=== PATIENT | female | born 1975 | race Caucasian/White ===

== ENCOUNTER 2021-01-09 07:56 | Day surgery (SDC) | payer BC, OTHER ==
[~2021-01-09] VITALS: Ht 154.9 cm; Wt 119.3 kg
[~2021-01-09 07:56] MED LIST: ESCI5SOL3 PO; LIDOCAINE 1% MDV 20ML VIAL SQ PRN; LOSA50TA88 PO; LR 1,000 ML IV ONE; SETL1TAB PO; ceFAZolin SOD 1 GM in D5W MINI-BAG PLUS 50 ML IV ONE; ceFAZolin SOD 2 GM in IV 1 EA IV ONE
[2021-01-09] MEDS ORDERED: MIDAZOLAM INJ 2MG/2ML VIAL (J2250 PER 1MG) As Ordered ONE (08:02)
[2021-01-09] MEDS ORDERED: fentaNYL 100 MCG/2 ML INJECTION (J3010) As Ordered ONE (08:02)
[2021-01-09] MEDS ORDERED: propofoL 200 MG/20 ML VIAL As Ordered ONE (08:03)
[2021-01-09] MEDS ORDERED: dexameTHASONE 4 MG/ML 1ML VIAL (J1100 PER 1MG) As Ordered ONE (08:03)
[2021-01-09] MEDS ORDERED: ONDANSETRON 4MG/2ML VIAL As Ordered ONE (08:03)
[2021-01-09] MEDS ORDERED: LIDOCAINE 2% 100MG/5ML SDV (FOR ANES.) As Ordered ONE (08:03)
[2021-01-09] MEDS ORDERED: ePHEDrine SULFATE 25 MG/5 ML(5MG/ML) SYRINGE As Ordered ONE (08:24)
[2021-01-09] MEDS ORDERED: ACETAMINOPHEN 1000MG 100ML IV BTL (OFIRMEV) (J0131 PER 10MG) As Ordered ONE (08:24)
[2021-01-09] MEDS ORDERED: PHENYLephrine 500MCG 5ML (100MCG/ML) SYRINGE As Ordered ONE (08:24)
[2021-01-09] MEDS ORDERED: CONRAY-60 60% 50ML VIAL (Q9961) As Ordered ONE (09:06)
--- NOTE | 2021-01-09 10:28 | REP ---
INDICATION: RIGHT STENT PLACEMENT. COMPARISON: [facility] 07/28/2013 TECHNIQUE: Two images from C-arm fluoroscopy for right ureteral stent placement FINDINGS: First image shows contrast in the ureter to the collecting system the right kidney with some distention of the calices. Second image shows some reduction of the caliceal distension with contrast in the renal pelvis. A double pigtail stent is seen coiled proximally in the renal pelvis and distally in the bladder. IMPRESSION: Status post right internal ureteral stent placement. Fluoroscopy time: 9 seconds. <Electronically signed by Juve Welsh > 01/09/21 1024
[2021-01-09] MEDS ORDERED: OXYC1TAB23 PO (10:38)
[2021-01-09] MEDS ORDERED: oxyCODONE 5MG TAB PO PRN (10:50)
[2021-01-09] MEDS ORDERED: fentaNYL 100 MCG/2 ML INJECTION (J3010) IV PRN (10:50)
[2021-01-09] MEDS ORDERED: LR 1,000 ML IV SCH (10:50)
[2021-01-09] MEDS ORDERED: PERCOCET 5MG/325MG TAB PO PRN (10:50)
[2021-01-09] MEDS ORDERED: ONDANSETRON 4MG/2ML VIAL IV PRN (10:50)
[2021-01-09 12:21] VITALS: BP 150/80
--- NOTE | 2021-01-09 13:15 | RO ---
OPERATIVE NOTE DATE OF OPERATION: 01/09/2021 PREOPERATIVE DIAGNOSIS: Obstructing right ureteral stone. POSTOPERATIVE DIAGNOSIS: Obstructing right ureteral stone. PROCEDURES: Cystoscopy, right ureteroscopy with laser lithotripsy and basket extraction of stones, right retrograde pyelogram with intraoperative interpretation of images, right ureteral stent placement. SURGEON: Dr. Fortunato Saunders WHEAT WASHER: None. ANESTHESIA: General. OPERATIVE INDICATIONS: This 45-year-old female was found to have an obstructing 3 mm distal right ureteral stone. She did not pass the stone on her own, and therefore she was brought to the operating room today for treatment. DESCRIPTION OF PROCEDURE: The patient was brought to the operating room, and general anesthesia was induced. Prophylactic antibiotics were infused. She was placed in the dorsal lithotomy position and prepped and draped in the usual sterile fashion. A rigid cystoscope was inserted in the ureteral meatus and advanced into the bladder. A guidewire was advanced up the right collecting system. I went up the right collecting system with a short semirigid ureteroscope, and within the distal ureter the stone was seen. It was impacted and appeared to be 4-5 mm. I then utilized a 272 micron laser fiber to fragment the stone into smaller pieces. All the fragments were then removed. I then examined the more proximal ureter, and no additional stone fragments were seen. A retrograde pyelogram was performed and was notable for moderate to severe right hydroureteronephrosis with no extravasation. I then withdrew the ureteroscope, and no additional stones were seen. I then utilized the guidewire to advance a 6-E[place]ian x 22-32 cm JJ ureteral stent up the right collecting system. The wire was removed, and there were adequate curls of the stent in the right renal pelvis and in the bladder. The bladder was then emptied of all fluids, and this marked the conclusion of the procedure. The patient was taken out of the dorsal lithotomy position, awakened from anesthesia, and transported to the recovery room in stable condition. ESTIMATED BLOOD LOSS: 5 mL. COMPLICATIONS: None. SPECIMENS: Kidney stone fragments. PLAN: The patient will followup in the urology clinic in a few weeks for stent removal. SWETHA
== END 2021-01-09 12:21 | disposition home or self-care (01) ==
LOC: M SDC 07:56
PROVIDERS: ATTEND Urology
DX: N20.1 Calculus of ureter (principal); I10 Essential (primary) hypertension; E04.2 Nontoxic multinodular goiter; F41.9 Anxiety disorder, unspecified; Z79.899 Other long term (current) drug therapy
CPT/HCPCS: 52356; 74420; 82365; 88300; C1769; C2617; J0131; J0690; J1100; J2250; J2370; J2405; J3010; Q9961

== ENCOUNTER → 2022-06-18 | Outpatient (CLI) | payer BC, OTHER ==
[~2022-06-18] MED LIST changes: -LIDOCAINE 1% MDV 20ML VIAL SQ PRN; +LOSA50TA28 PO; -LOSA50TA88 PO; -LR 1,000 ML IV ONE; +OXYC1TAB23 PO; -ceFAZolin SOD 1 GM in D5W MINI-BAG PLUS 50 ML IV ONE; -ceFAZolin SOD 2 GM in IV 1 EA IV ONE
== END ==
LOC: M RAD 11:46
DX: E04.1 Nontoxic single thyroid nodule (principal)
CPT/HCPCS: 78014; A9516

== ENCOUNTER → 2022-08-06 | Outpatient (REF) | payer OTHER | LOC: M PLALAB 11:11 | PROVIDERS: ATTEND Nurse Practitioner Family | DX: Z12.4 Encounter for screening for malignant neoplasm of cervix (principal) | CPT/HCPCS: 87624; G0123 ==

== ENCOUNTER → 2023-10-30 | Outpatient (REF) | payer OTHER, BC | LOC: M SFHCWAGY 12:57 | PROVIDERS: ATTEND Nurse Practitioner Family | DX: Z12.4 Encounter for screening for malignant neoplasm of cervix (principal) | CPT/HCPCS: 87624; G0123 ==